=== PATIENT | male | born 1990 | race African-American/Black ===

== ENCOUNTER 2022-08-28 22:22 | Emergency (ER) | payer SELFPAY ==
[2022-08-28] MEDS ORDERED: Ketorolac Tromethamine 30 MG/ML VIAL ONE (22:41)
== END 2022-08-28 23:05 | disposition home or self-care (01) ==
LOC: CSHERS 22:22
DX: K02.9 Dental caries, unspecified (principal); F17.210 Nicotine dependence, cigarettes, uncomplicated
CPT/HCPCS: 96372; 99283; J1885